=== PATIENT | female | born 1985 | race African-American/Black ===

== ENCOUNTER 2016-11-03 19:41 | Emergency (ER) | payer MEDICAID, OTHER ==
[~2016-11-03] VITALS: Ht 160 cm; Wt 75.3 kg
[~2016-11-03 19:41] MED LIST: ALBUPOW26
[2016-11-03 22:54] VITALS: BP 128/80
== END 2016-11-03 23:04 | disposition home or self-care (01) ==
LOC: ER 19:44
DX: K08.89 Other specified disorders of teeth and supporting structures (principal)

== ENCOUNTER 2017-01-18 20:10 | Emergency (ER) | payer MEDICAID ==
[~2017-01-18] VITALS: Ht 160 cm; Wt 73.9 kg
[2017-01-18 20:40] VITALS: BP 102/72
[2017-01-18 21:04] LABS: Urine Bilirubin Negative (Negative); Urine Blood Negative /uL (Negative); Urine Color Yellow (Yellow); Urine Glucose Normal (Normal); Urine Ketone Negative (Negative); Urine Nitrite Negative (Negative); Urine RBC 1 /hpf (0 - 4); Urine Squamous Epithelial Cell FEW /hpf (<5)
== END 2017-01-19 02:44 | disposition left against medical advice (07) ==
LOC: ER 20:28
DX: M54.2 Cervicalgia (principal); M25.552 Pain in left hip; Z53.21 Procedure and treatment not carried out due to patient leaving prior to being seen by health care provider
CPT/HCPCS: 81001; 81025

== ENCOUNTER 2017-02-17 20:09 | Emergency (ER) | payer MEDICAID ==
[~2017-02-17] VITALS: Ht 160 cm; Wt 76.2 kg
[2017-02-17 20:20] VITALS: BP 107/75
[2017-02-17 21:58] LABS: Urine Bilirubin Negative (Negative); Urine Blood Negative /uL (Negative); Urine Ca Oxalate Crystal FEW (None Seen); Urine Color Yellow (Yellow); Urine Glucose Normal (Normal); Urine Ketone Negative (Negative); Urine Mucus FEW (None Seen); Urine Nitrite Negative (Negative); Urine RBC 1 /hpf (0 - 4); Urine Squamous Epithelial Cell FEW /hpf (<5); Urine Urobilinogen Normal (Negative)
== END 2017-02-18 01:07 | disposition left against medical advice (07) ==
LOC: ER 20:15
DX: O26.892 Other specified pregnancy related conditions, second trimester (principal); Z3A.14 14 weeks gestation of pregnancy; Z53.21 Procedure and treatment not carried out due to patient leaving prior to being seen by health care provider
CPT/HCPCS: 36415; 76805; 81001; 84702